=== PATIENT | male | born 1950 | race Caucasian/White ===

== ENCOUNTER 2022-07-27 15:46 | Outpatient (CLI) | payer MEDICARE, MEDICAID, SELFPAY ==
--- NOTE | 2022-07-27 16:03 | MR_ITS ---
WS: [id number] MRI RIGHT SHOULDER NONCONTRAST TECHNIQUE: Sagittal T2, coronal T1, T2 and proton density imaging. Axial gradient PDE imaging. CLINICAL INFORMATION: PAIN OF UPPER EXTREMITY COMPARISON: None. FINDINGS: Due to claustrophobia FAST shoulder protocol performed Moderate degenerative arthritis at the AC joint with mild edema. Mild synovial thickening. Mild downs loping acromion with subacromial spurring. Narrowing of the subacromial space. Mild tendinopathy invo lving supraspinatus. Normal infraspinatus. Normal teres minor and subscapularis. Similar tiny biceps tendon appears intact within the bicipital groove. Small intra-articular biceps tendon appears intact . Degenerative fraying glenoid labrum. Normal bone marrow signal in the humerus and glenoid. MR/MR shoulder RT wo con* [id number] IMPRESSION: 1. Moderate degenerative arthritis AC joint with mild edema. Mild downsloping acromion with narrowing of the subacromial space. 2. Mild tendinopathy supraspinatus. Rotator cuff is otherwise normal. 3. Tiny biceps tendon in the bicipital groove appears intact likely due to linda or chronic partial tear. 4. Degenerative fraying of the glenoid labrum. 5. Small intra-articular biceps tendon appears intact.
--- NOTE | 2022-07-27 16:21 | XR_ITS ---
WS: [id number] [id number] REASON FOR EXAM: PAIN OF UPPER EXTREMITY FINDINGS: There is moderate narrowing of the lateral humeral joint with subchondral sclerosis and cystic change in the glenoid. Humeral head more closely approximates the undersurface of the acromial process than normal. Enthesop hytes at the deltoid insertion on the acromial process. There is subchondral sclerosis in the greater biceps tuberosity. The remainder of the right humerus is without fracture, periosteal reaction, or other focal bone lesi on. XR/[place] [id number] IMPRESSION: There is osteoarthritis in the glenohumeral joint. There are findings suggestin g there may be significant rotator cuff tendon disease.
--- NOTE | 2022-07-27 16:21 | XR_ITS ---
WS: [id number] [id number] REASON FOR EXAM: PAIN OF UPPER EXTREMITY FINDINGS: No fracture or focal bone lesion of the right clavicle. There is narrowing of the acromioclavicular joint space with mild subchondral sclerosis and osteophyt osis. No soft tissue abnormality. XR/[place] [id number] IMPRESSION: Mild osteoarthritis of the acromioclavicular joint.
== END 2022-07-27 15:47 | disposition home or self-care (01) ==
PROVIDERS: PCP Family Medicine; Visit Provider Family Medicine
DX: M19.021 Primary osteoarthritis, right elbow (principal); M19.011 Primary osteoarthritis, right shoulder; R60.0 Localized edema
CPT/HCPCS: 73000; 73060; 73221